=== PATIENT | female | born 1995 | race Caucasian/White ===

== ENCOUNTER 2024-07-03 13:24 | Emergency (ER) | payer OTHER ==
[~2024-07-03] VITALS: Ht 149.9 cm; Wt 41.7 kg
[2024-07-03 14:15] VITALS: BP 115/70; TEMP 98.2
[2024-07-03] MEDS ORDERED: BENZ-13 PO (15:02)
[2024-07-03] MEDS ORDERED: IBUP-1955 PO (15:02)
[2024-07-03 15:09] VITALS: O2SAT 96
== END 2024-07-03 15:09 | disposition home or self-care (01) ==
LOC: ER 13:29
DX: J06.9 Acute upper respiratory infection, unspecified (principal); R05.9 Cough, unspecified; R50.9 Fever, unspecified; R53.81 Other malaise; Z20.822 Contact with and (suspected) exposure to COVID-19
CPT/HCPCS: 71045-TC